=== PATIENT | female | born 1955 | race Caucasian/White ===

== ENCOUNTER → 2018-05-29 | Outpatient (CLI) | payer BC, OTHER ==
[2018-05-29 21:00] LABS: ESTIMATED AVERAGE GLUCOSE 183 MG/DL (60-110)
== END ==
LOC: M LAB 16:13
DX: E11.65 Type 2 diabetes mellitus with hyperglycemia (principal); E78.2 Mixed hyperlipidemia
CPT/HCPCS: 83036

== ENCOUNTER → 2019-02-14 | Outpatient (REF) | payer OTHER | LOC: M LAB LCGH 10:08 | PROVIDERS: ATTEND Surgery | DX: K21.9 Gastro-esophageal reflux disease without esophagitis (principal); K92.1 Melena; Z86.010 Personal history of colon polyps ==

== ENCOUNTER 2021-07-06 09:07 | Day surgery (SDC) | payer MEDICARE, BC, OTHER ==
[~2021-07-06] VITALS: Ht 154.9 cm; Wt 100.2 kg
[~2021-07-06 09:07] MED LIST: ATOR40TA75 PO; FENO1CAP16 PO; HUMU500S2; HYDR12CA PO; JARD1TAB3 PO; LIDOCAINE 1% MDV 20ML VIAL SQ PRN; LOSA100T50 PO; LR 1,000 ML IV ONE; METF-838 PO; MULT-40 PO; PANT40TA29 PO; PURE500C5 PO; SOLI1INJ SC; ZINC1TAB2 PO
[2021-07-06] MEDS ORDERED: propofoL 200 MG/20 ML VIAL As Ordered ONE ×2 (10:05→11:30)
[2021-07-06] MEDS ORDERED: LIDOCAINE 2% 100MG/5ML SDV (FOR ANES.) As Ordered ONE (10:05)
[2021-07-06] MEDS ORDERED: fentaNYL 100 MCG/2 ML INJECTION (J3010) As Ordered ONE (10:06)
[2021-07-06] MEDS ORDERED: dexameTHASONE 4 MG/ML 1ML VIAL (J1100 PER 1MG) As Ordered ONE (10:06)
[2021-07-06] MEDS ORDERED: ROCURONIUM BROMIDE 50 MG/5 ML VIAL As Ordered ONE (10:06)
[2021-07-06] MEDS ORDERED: MIDAZOLAM INJ 2MG/2ML VIAL (J2250 PER 1MG) As Ordered ONE (10:06)
[2021-07-06] MEDS ORDERED: ONDANSETRON 4MG/2ML VIAL As Ordered ONE (10:06)
[2021-07-06] MEDS ORDERED: CIPRODEX OTIC SUSP 7.5ML As Ordered ONE (10:23)
[2021-07-06] MEDS ORDERED: LIDOCAINE W/EPINEPHRINE 1% 20ML VIAL As Ordered ONE (10:23)
[2021-07-06] MEDS ORDERED: EPINEPHrine 1MG/ML INJ 30ML MD-VIAL As Ordered ONE (10:24)
[2021-07-06] MEDS ORDERED: METOCLOPRAMIDE INJ 10MG/2ML VIAL (J2765 PER 1) As Ordered ONE (11:18)
[2021-07-06] MEDS ORDERED: KETOROLAC 60MG 2ML VIAL As Ordered ONE (11:26)
[2021-07-06] MEDS ORDERED: ACETAMINOPHEN 1000MG 100ML IV BTL (OFIRMEV) (J0131 PER 10MG) As Ordered ONE (11:28)
[2021-07-06] MEDS ORDERED: fentaNYL 100 MCG/2 ML INJECTION (J3010) IV PRN (12:50)
[2021-07-06] MEDS ORDERED: LR 1,000 ML IV SCH (12:50)
[2021-07-06] MEDS ORDERED: ONDANSETRON 4MG/2ML VIAL IV PRN (12:50)
[2021-07-06] MEDS ORDERED: oxyCODONE 5MG TAB PO PRN (12:50)
[2021-07-06 13:30] VITALS: BP 134/67
--- NOTE | 2021-07-06 15:20 | RO ---
OPERATIVE NOTE DATE OF OPERATION: 07/06/2021 PREOPERATIVE DIAGNOSIS: Chronic right tympanic membrane perforation. POSTOPERATIVE DIAGNOSIS: Chronic right tympanic membrane perforation. PROCEDURE: Right tympanoplasty. SURGEON: MAURIZIO WARD MD FINDINGS: There was a bit of a discharge around the rim of the tympanic membrane perforation. I did clean the edges of the perforation. DESCRIPTION OF PROCEDURE: I infiltrated the ear with Lidocaine and Epinephrine and cleaned the ear with Betadine and saline. I made a posterior tympanotomy incision and elevated the flap to the middle ear. Once in the middle ear, then I elevated the tympanostomy superiorly and inferiorly and then inferiorly around. I did bisect the flap. Then, I made an incision above the area and harvested temporalis fascia. I prepped that in the usual fashion. I closed the incision above the ear with 3/0 Prolene. I then put some Gelfoam in the middle ear space and then placed the graft on top of this and tucked it anteriorly, inferiorly, superiorly. The tympanic membrane was returned to its original position posteriorly and then I checked the perforation opening to make sure it was well covered with graft. I then put some Gelfoam over the lateral aspect and then put in an OtoPore dressing in the ear canal. The patient tolerated the procedure well, was extubated and transferred to the Recovery Room in excellent condition.
--- NOTE | 2021-07-06 22:14 | ECGEPIP ---
[facility] Test Date: 2021-07-06 Pat Name: CHAR ZHANG Department: Room: - Gender: Female [employer] Supervisor: SOSA : 1955 Requested By: GALDINO MARCUS Order Number: [id number] Reading MD: Marcus Aquino Measurements Intervals Bock Rate: 86 P: 55 NJ: 162 QRS: -25 QRSD: 84 T: 18 QT: 366 QTc: 437 Interpretive Statements Normal sinus rhythm Poor R wave progression Non-specific STT abnormalities No prior Electronically Signed on 07-06-2021 22:14:19 EDT by Marcus Aquino
== END 2021-07-06 13:34 | disposition home or self-care (01) ==
LOC: M SDC 09:07
PROVIDERS: ATTEND Otolaryngology
DX: H72.01 Central perforation of tympanic membrane, right ear (principal); I10 Essential (primary) hypertension; E78.5 Hyperlipidemia, unspecified; E11.9 Type 2 diabetes mellitus without complications; K21.9 Gastro-esophageal reflux disease without esophagitis; F41.9 Anxiety disorder, unspecified; F32.9 Major depressive disorder, single episode, unspecified; G47.33 Obstructive sleep apnea (adult) (pediatric); Z88.1 Allergy status to other antibiotic agents; Z79.84 Long term (current) use of oral hypoglycemic drugs; Z79.899 Other long term (current) drug therapy; Z79.4 Long term (current) use of insulin
CPT/HCPCS: 69610; 93005; J0131; J1100; J1885; J2250; J2405; J2765; J3010